=== PATIENT | female | born 1995 | race Two or more races ===

== ENCOUNTER 2024-01-30 20:56 | Emergency (ER) | payer OTHER ==
[~2024-01-30] VITALS: Ht 162.6 cm; Wt 61.2 kg
[2024-01-30] MEDS ORDERED: CEFTRIAXONE SODIUM 1,000 MG VIAL IM ONE (23:15)
[2024-01-30] MEDS ORDERED: METHYLPREDNISOLONE SOD SUCC 125 MG VIAL IM ONE (23:15)
== END 2024-01-31 00:32 | disposition home or self-care (01) ==
LOC: ER 20:56
DX: S90.861A Insect bite (nonvenomous), right foot, initial encounter (principal); L03.115 Cellulitis of right lower limb; W57.XXXA Bitten or stung by nonvenomous insect and other nonvenomous arthropods, initial encounter; Z88.6 Allergy status to analgesic agent

== ENCOUNTER 2024-09-04 13:44 | Emergency (ER) | payer OTHER ==
[~2024-09-04] VITALS: Ht 162.6 cm; Wt 60.8 kg
[2024-09-04] MEDS ORDERED: ORPHENADRINE CITRATE 30 MG/ML AMPUL IM STA (16:54)
[2024-09-04] MEDS ORDERED: DEXAMETHASONE SODIUM PHOSPHATE 4 MG/ML VIAL IM STA (16:55)
[2024-09-04] MEDS ORDERED: ACETAMINOPHEN 500 MG GEL..CAP PO STA (16:55)
== END 2024-09-04 17:19 | disposition home or self-care (01) ==
LOC: ER 13:45
DX: G24.3 Spasmodic torticollis (principal); R51.9 Headache, unspecified; Z88.6 Allergy status to analgesic agent

== ENCOUNTER 2024-09-08 20:54 | Emergency (ER) | payer OTHER ==
[~2024-09-08] VITALS: Ht 162.6 cm; Wt 60.8 kg
[2024-09-08] MEDS ORDERED: DEXAMETHASONE SODIUM PHOSPHATE 4 MG/ML VIAL IM STA (21:06)
[2024-09-08] MEDS ORDERED: ORPHENADRINE CITRATE 30 MG/ML AMPUL IM STA (21:07)
== END 2024-09-08 22:43 | disposition home or self-care (01) ==
LOC: ER 20:56
DX: M54.2 Cervicalgia (principal); R51.9 Headache, unspecified; Z88.6 Allergy status to analgesic agent